=== PATIENT | male | born 1960 | race Caucasian/White ===

== ENCOUNTER 2024-02-06 20:38 | Inpatient (IN) | payer MEDICARE ==
[~2024-02-06] VITALS: Ht 170.2 cm; Wt 78.0 kg
[2024-02-06 20:46] VITALS: BP 198/108; PULSE 96; RESP 18; TEMP 97.8; O2SAT 100
[2024-02-06 21:12] LABS: BASOPHILS % (AUTO) 0.4 % (0.0-2.0); EOSINOPHILS # (AUTO) 0.4 K/uL (0-0.4); EOSINOPHILS % (AUTO) 4.4 % (0.0-4.0); HEMATOCRIT 44.2 % (36-52); HEMOGLOBIN 15.4 g/dL (12.0-18.0); LYMPHOCYTES # (AUTO) 4.9 K/uL (2.0-11.5); LYMPHOCYTES % (AUTO) 51.5 % (20.5-51.1); MEAN CORPUSCULAR HEMOGLOBIN 30 pg (27-31); MEAN CORPUSCULAR HGB CONC 35 g/dL (33-37); MEAN CORPUSCULAR VOLUME 85.3 fL (80-94); MONOCYTES # (AUTO) 0.7 K/uL (0.8-1.0); MONOCYTES % (AUTO) 7.7 % (1.7-9.3); NEUTROPHILS # (AUTO) 3.4 K/uL (1.8-7.7); PLATELET COUNT (AUTO) 281 K/uL (140-450); RED BLOOD CELL COUNT(AUTO) 5.19 MIL/uL (4.20-6.10); RED CELL DISTRIBUTION WIDTH 14.7 % (11.6-13.7); WHITE BLOOD COUNT (AUTO) 9.4 K/uL (4.8-10.8)
[2024-02-06 21:25] LABS: ANION GAP 13.7 (8-16); CALCIUM 9.2 mg/dL (8.5-10.1); CARBON DIOXIDE 28.6 mmol/L (21-32); POTASSIUM 3.3 mmol/L (3.5-5.1)
[2024-02-06] MEDS: NITROGLYCERIN 0.4 MG TAB SL ONE (21:29)
[2024-02-07] VITALS (7 sets, daily range): BP systolic 133; BP diastolic 70; PULSE 69–82; RESP 18; TEMP 98.1; O2SAT 95–98
[2024-02-07 00:10] LABS: ALBUMIN 3.7 g/dL (3.4-5.0); BILIRUBIN,DIRECT 0.1 mg/dL (0.0-0.3); TOTAL BILIRUBIN 0.3 mg/dL (0.0-1.0); TOTAL PROTEIN, SERUM 7.5 g/dL (6.4-8.2)
[2024-02-07] MEDS: ASPIRIN 325 MG TAB PO ONE (00:23)
[2024-02-07] MEDS: NITROGLYCERIN 2% 1 GM PKT TP ONE ×2 (00:26→06:11)
[2024-02-07] MEDS: ENOXAPARIN 80 MG/0.8 ML SYR SUBQ ONE (00:30)
[2024-02-07] MEDS ORDERED: KCL 20 MEQ IN 100 mL PREMIX 200 ML IV PRN ×2 (01:20→01:30)
[2024-02-07] MEDS ORDERED: MAG SULF 2000 MG/WATER PREMIX 50 ML IV PRN ×2 (01:20→01:30)
[2024-02-07] MEDS ORDERED: MORPHINE SULFATE 4 MG/ML SYR IVP PRN ×2 (01:20→01:30)
[2024-02-07] MEDS ORDERED: ACETAMINOPHEN 325 MG TAB PO PRN ×2 (01:20→01:30)
[2024-02-07] MEDS ORDERED: ONDANSETRON 4 MG/2 ML VIAL IVP PRN ×2 (01:20→01:30)
[2024-02-07] MEDS ORDERED: MAGNESIUM OXIDE 400 MG TAB PO PRN ×2 (01:20→01:30)
[2024-02-07] MEDS ORDERED: POTASSIUM CHLORIDE 10 MEQ TABER PO PRN ×2 (01:20→01:30)
[2024-02-07] MEDS ORDERED: NACL 0.9% 1,000 ML IV SCH (01:20)
[2024-02-07] MEDS ORDERED: HEPARIN PER PHARMACY MC PRN ×2 (01:25→01:30)
[2024-02-07] MEDS ORDERED: NITROGLYCERIN 2% 1 GM PKT TP ONE ×2 (01:25→02:30)
[2024-02-07] MEDS: NACL 0.9% 1,000 ML IV SCH (02:33)
[2024-02-07] MEDS ORDERED: ASPIRIN 81 MG TAB.CHEW PO SCH (09:00)
[2024-02-07] MEDS ORDERED: ATORVASTATIN 20 MG TAB PO SCH (09:00)
[2024-02-07] MEDS: POTASSIUM CHLORIDE 10 MEQ TABER PO SCH (10:44)
[2024-02-07] MEDS: ATORVASTATIN 20 MG TAB PO SCH (10:53)
[2024-02-07] MEDS: ASPIRIN 81 MG TAB.CHEW PO SCH (10:57)
[2024-02-07] MEDS: hePARIN / DEXT 5% PREMIX 250 ML IV SCH (12:02)
[2024-02-08] VITALS (11 sets, daily range): BP systolic 147–152; BP diastolic 79–96; PULSE 57–78; RESP 18–20; TEMP 97.5–98.6; O2SAT 95–98
[2024-02-08 07:28] LABS: ANION GAP 11.2 (8-16); CALCIUM 8.8 mg/dL (8.5-10.1); CARBON DIOXIDE 26.9 mmol/L (21-32); CREATININE 0.9 mg/dL (0.6-1.3); POTASSIUM 4.1 mmol/L (3.5-5.1)
[2024-02-08 07:33] LABS: PHOSPHORUS 3.7 mg/dL (2.5-4.9)
[2024-02-08 07:44] LABS: BASOPHILS % (AUTO) 0.3 % (0.0-2.0); EOSINOPHILS # (AUTO) 0.3 K/uL (0-0.4); EOSINOPHILS % (AUTO) 3.1 % (0.0-4.0); HEMATOCRIT 40.5 % (36-52); HEMOGLOBIN 13.8 g/dL (12.0-18.0); LYMPHOCYTES # (AUTO) 2.9 K/uL (2.0-11.5); LYMPHOCYTES % (AUTO) 32.5 % (20.5-51.1); MEAN CORPUSCULAR HEMOGLOBIN 29 pg (27-31); MEAN CORPUSCULAR HGB CONC 34 g/dL (33-37); MONOCYTES # (AUTO) 0.9 K/uL (0.8-1.0); MONOCYTES % (AUTO) 10.1 % (1.7-9.3); NEUTROPHILS # (AUTO) 4.8 K/uL (1.8-7.7); PLATELET COUNT (AUTO) 248 K/uL (140-450); RED BLOOD CELL COUNT(AUTO) 4.72 MIL/uL (4.20-6.10); RED CELL DISTRIBUTION WIDTH 14.5 % (11.6-13.7)
[2024-02-08] MEDS: METOPROLOL SUCCINATE 50 MG TABER PO ONE (16:13)
[2024-02-09] VITALS: BP 133/79; PULSE 66; PULSE 81; RESP 18; TEMP 98.3; O2SAT 96
[2024-02-09 04:00] VITALS: BP 158/85; PULSE 56; PULSE 66; RESP 18; TEMP 98.2; O2SAT 98
[2024-02-09 06:19] LABS: BASOPHILS % (AUTO) 0.5 % (0.0-2.0); EOSINOPHILS # (AUTO) 0.4 K/uL (0-0.4); EOSINOPHILS % (AUTO) 5.9 % (0.0-4.0); HEMATOCRIT 41.4 % (36-52); HEMOGLOBIN 14.1 g/dL (12.0-18.0); LYMPHOCYTES # (AUTO) 3.3 K/uL (2.0-11.5); LYMPHOCYTES % (AUTO) 46.8 % (20.5-51.1); MEAN CORPUSCULAR HEMOGLOBIN 29 pg (27-31); MEAN CORPUSCULAR HGB CONC 34 g/dL (33-37); MEAN CORPUSCULAR VOLUME 86.2 fL (80-94); MONOCYTES # (AUTO) 0.7 K/uL (0.8-1.0); MONOCYTES % (AUTO) 9.2 % (1.7-9.3); NEUTROPHILS # (AUTO) 2.7 K/uL (1.8-7.7); NEUTROPHILS % (AUTO) 37.6 % (42.2-75.2); PLATELET COUNT (AUTO) 247 K/uL (140-450); RED BLOOD CELL COUNT(AUTO) 4.81 MIL/uL (4.20-6.10); RED CELL DISTRIBUTION WIDTH 14.8 % (11.6-13.7); WHITE BLOOD COUNT (AUTO) 7.1 K/uL (4.8-10.8)
[2024-02-09 06:52] LABS: ANION GAP 13.3 (8-16); CARBON DIOXIDE 27.5 mmol/L (21-32); POTASSIUM 3.8 mmol/L (3.5-5.1)
[2024-02-09 08:00] VITALS: BP 119/83; PULSE 61; RESP 18; TEMP 97.1; O2SAT 97
[2024-02-09 08:02] LABS: MAGNESIUM 2.1 mg/dL (1.8-2.4); PHOSPHORUS 3.6 mg/dL (2.5-4.9)
[2024-02-09] MEDS: LOSARTAN 50 MG TAB PO SCH (08:23)
[2024-02-09] MEDS: METOPROLOL SUCCINATE 50 MG TABER PO SCH (08:24)
[2024-02-09] MEDS: ASPIRIN 81 MG TAB.CHEW PO SCH (08:30)
[2024-02-09 12:00] VITALS: BP 156/69; PULSE 70; RESP 16; TEMP 98.4; O2SAT 99
[2024-02-09 16:00] VITALS: BP 157/80; RESP 18; TEMP 97.8; O2SAT 93
[2024-02-09] MEDS ORDERED: ASPI81CT95 PO (16:30)
[2024-02-09] MEDS ORDERED: ATOR20TA40 PO (16:30)
[2024-02-09] MEDS ORDERED: Heparin Per Pharmacy MC (16:30)
[2024-02-09 20:00] VITALS: BP 159/89; PULSE 70; PULSE 73; RESP 18; TEMP 98.1; O2SAT 96
[2024-02-10] VITALS: BP 167/96; PULSE 62; PULSE 65; RESP 18; TEMP 97.5; O2SAT 97
[2024-02-10] MEDS: CLONIDINE HYDROCHLORIDE 0.1 MG TAB PO PRN (00:53)
[2024-02-10 02:28] VITALS: BP 131/82; PULSE 64; RESP 18; TEMP 97.5
[2024-02-10 04:00] VITALS: BP 149/81; PULSE 60; RESP 18; TEMP 97.6; O2SAT 97
== END 2024-02-10 05:40 | disposition short-term general hospital (02) | DRG 282 ==
LOC: MED 20:38 → MTU 02-07 01:16 → MMU 02-07 01:23 → MED 02-07 01:23 → MTU 02-07 06:20 → MMU 02-07 06:24
PROVIDERS: ADMIT Internal Medicine; ATTEND Internal Medicine
DX: I21.4 Non-ST elevation (NSTEMI) myocardial infarction (principal); E87.6 Hypokalemia; I20.0 Unstable angina
CPT/HCPCS: 36415; 71045; 80048; 80076; 83735; 83880; 84100; 84484; 85025; 85379; 85610; 85730; 87081; 93005; 96372; 99291; J1644; J1650; J2270

== ENCOUNTER 2024-08-16 21:53 | Emergency (ER) | payer MEDICARE ==
[~2024-08-16] VITALS: Ht 170.2 cm; Wt 79.4 kg
[~2024-08-16 21:53] MED LIST: ASPI81CT95 PO; ATOR20TA40 PO; Heparin Per Pharmacy MC
[2024-08-16 22:01] VITALS: BP 190/96; PULSE 60; RESP 18; TEMP 98.2; O2SAT 98
[2024-08-16 22:40] LABS: BASOPHILS % (AUTO) 0.5 % (0.0-2.0); EOSINOPHILS # (AUTO) 0.4 K/uL (0-0.4); EOSINOPHILS % (AUTO) 4.4 % (0.0-4.0); HEMATOCRIT 43.1 % (36-52); HEMOGLOBIN 14.4 g/dL (12.0-18.0); LYMPHOCYTES # (AUTO) 4.5 K/uL (2.0-11.5); LYMPHOCYTES % (AUTO) 49.7 % (20.5-51.1); MEAN CORPUSCULAR HEMOGLOBIN 28 pg (27-31); MEAN CORPUSCULAR HGB CONC 33 g/dL (33-37); MEAN CORPUSCULAR VOLUME 84.4 fL (80-94); MONOCYTES # (AUTO) 0.8 K/uL (0.8-1.0); MONOCYTES % (AUTO) 9.1 % (1.7-9.3); NEUTROPHILS # (AUTO) 3.3 K/uL (1.8-7.7); NEUTROPHILS % (AUTO) 36.3 % (42.2-75.2); PLATELET COUNT (AUTO) 257 K/uL (140-450); RED BLOOD CELL COUNT(AUTO) 5.11 MIL/uL (4.20-6.10)
[2024-08-16 22:58] LABS: ALBUMIN 3.6 g/dL (3.4-5.0); ANION GAP 11.2 (8-16); CALCIUM 8.9 mg/dL (8.5-10.1); CARBON DIOXIDE 29.3 mmol/L (21-32); POTASSIUM 3.5 mmol/L (3.5-5.1); TOTAL BILIRUBIN 0.4 mg/dL (0.0-1.0); TOTAL PROTEIN, SERUM 7.6 g/dL (6.4-8.2)
[2024-08-16] MEDS: ASPIRIN 325 MG TAB PO ONE (23:00)
[2024-08-16] MEDS: ENALAPRILAT 2.5 MG/2 ML VIAL IVP ONE (23:56)
[2024-08-17 01:17] VITALS: BP 181/93; PULSE 60; RESP 18; TEMP 98.2; O2SAT 99
== END 2024-08-17 01:17 | disposition left against medical advice (07) ==
LOC: MED 21:53
DX: R07.89 Other chest pain (principal); I10 Essential (primary) hypertension; Z79.899 Other long term (current) drug therapy; Z98.890 Other specified postprocedural states; Z79.82 Long term (current) use of aspirin
CPT/HCPCS: 36415; 71045; 80053; 83880; 84484; 85025; 93005; 96374; 99285; J3490; Q0092